=== PATIENT | male | born 1985 | race Two or more races ===

== ENCOUNTER 2019-02-11 15:08 | Emergency (ER) | payer OTHER ==
[~2019-02-11] VITALS: Ht 188 cm; Wt 98.0 kg
[~2019-02-11 15:08] MED LIST: MOTRIN800 MG PO; NORVASC5 MG PO; ORPH100T PO
[2019-02-11] MEDS ORDERED: LOSARTAN POTAS100 MG (15:34)
== END 2019-02-11 20:43 | disposition home or self-care (01) ==
LOC: ER 15:08
DX: S13.4XXA Sprain of ligaments of cervical spine, initial encounter (principal); S39.012A Strain of muscle, fascia and tendon of lower back, initial encounter; V49.9XXA Car occupant (driver) (passenger) injured in unspecified traffic accident, initial encounter; Y93.89 Activity, other specified; Y92.488 Other paved roadways as the place of occurrence of the external cause; Y99.8 Other external cause status

== ENCOUNTER 2019-02-12 08:11 | Emergency (ER) | payer OTHER ==
[~2019-02-12] VITALS: Ht 188 cm; Wt 98.0 kg
[~2019-02-12 08:11] MED LIST changes: +LOSARTAN POTAS100 MG
== END 2019-02-12 12:15 | disposition home or self-care (01) ==
LOC: ER 08:11
DX: M54.5 Low back pain (principal)